=== PATIENT | female | born 1940 | race Caucasian/White ===

== ENCOUNTER 2016-11-10 17:54 | Emergency (ER) | payer MEDICARE, OTHER ==
--- NOTE | 2016-11-10 19:11 | ER Document Report ---
ED Fall - General Chief Complaint: Fall Injury Stated Complaint: FALL/HEAD INJURY Information source: Patient, Relative, Emergency Med Personnel Notes: Patient supposedly had a witnessed fall at [facility] prior to arrival without loss of consciousness. Patient has had no vomiting, fevers, nausea, weakness or numbness. Patient's tetanus is up-to-date according to the family members in the room. Family states that the patient should not be walking unassisted. TRAVEL OUTSIDE OF THE [place] IN LAST 30 DAYS: No - HPI Occurred: Just prior to arrival Where: Senior Living Context: Lost balance Associated symptoms: None Location of injury/pain: Other - See above Quality of pain: Achy Severity: Mild Pain Level: 1 Prehospital interventions: C-collar. No: Backboard - Related data Allergies/Adverse Reactions: No Known Allergies Allergy (Verified 08/22/16 22:27) Past Medical History - Social History Smoking Status: Unknown if Ever Smoked Cigarette use (# per day): No Chew tobacco use (# tins/day): No Smoking Education Provided: No Frequency of alcohol use: None Drug Abuse: None Family History: None - Past Medical History Cardiac Medical History: Reports: Hx Congestive Heart Failure, Hx Hypertension Denies: Hx Coronary Artery Disease, Hx Heart Attack Pulmonary Medical History: Denies: Hx Asthma, Hx Bronchitis, Hx COPD, Hx Pneumonia Neurological Medical History: Reports: Hx Cerebrovascular Accident. Denies: Hx Seizures Endocrine Medical History: Reports: Hx Diabetes Mellitus Type 2 Musculoskeltal Medical History: Reports Hx Arthritis - Shoulder Psychiatric Medical History: Reports: Hx Dementia Past Surgical History: Reports: Hx Hysterectomy. Denies: Hx Pacemaker - Immunizations Hx Diphtheria, Pertussis, Tetanus Vaccination: Yes Review of Systems - Review of Systems Constitutional: denies: Fever EENT: denies: Eye discharge, Nose discharge Cardiovascular: denies: Chest pain, Palpitations, Heart racing Respiratory: denies: Cough Gastrointestinal: denies: Vomiting Genitourinary: denies: Dysuria Musculoskeletal: denies: Leg swelling Skin: Other - no hives. denies: Rash Neurological/Psychological: Other - no slurred speech -: Yes All other systems reviewed and negative Physical Exam - Vital signs Notes: Reviewed vital signs and nursing note as charted by RN. CONSTITUTIONAL: Alert and disoriented at baseline according to the family but responds appropriately to questions. Well-appearing; well-nourished HEAD: Normocephalic; 2 large hematomas to the left side of the head with dried blood. EYES: PERRL; full extraocular range of motion. ENT: Normal nose; no rhinorrhea; moist mucous membranes; pharynx without lesions noted NECK: Supple without meningismus; non-tender; no step-offs; cervical collar in place. CARD: Regular rate and rhythm; no murmurs, no clicks, no rubs, no gallops; symmetric distal pulses RESP: Normal chest excursion without splinting or tachypnea; breath sounds clear and equal bilaterally; no wheezes, no rhonchi, no rales ABD/GI: Normal bowel sounds; non-distended; soft, non-tender, no palpable organomegaly or masses BACK: The back appears normal and is non-tender to palpation EXT: Patient appears to have normal range of motion of all the joints. There was a concern about left knee pain but I am able to fully flex and extend the knee without difficulty. The leg is not shortened. Neurovascularly intact distally. SKIN: Normal color for age and race; warm; dry; good turgor; capillary refill < 2 seconds; no acute lesions noted NEURO: CN II through XII are intact. 5 out of 5 bilateral upper lower externally strength. PSYCH: The patient's mood and manner are appropriate. Grooming and personal hygiene are appropriate. Course - Re-evaluation Re-evalutation: 11/10/16 19:11 Given the history and physical examination in this elderly female, I will obtain a CT scan of the head, cervical spine, and x-ray of the chest and pelvis. We'll reassess the patient. 11/10/16 20:56 CT scan of the head and neck as recorded. X-rays as recorded. No acute fractures. After cleaning the wound the patient does have a small laceration to the lateral aspect of the head. We will place nba to close this laceration. 11/10/16 21:37 Laceration has been repaired. Patient still has no focal neurological deficits. Patient will be discharged back to the facility with strict return precautions that I've explained to the family. Procedures - Laceration/Wound Repair Left Head Wound length (cm): 2 Wound's Depth, Shape: Superficial Anesthetic type: 2% Lidocaine Volume Anesthetic (mLs): 5 Wound explored: Clean Irrigated w/ Saline (mLs): 200 Wound Repaired With: Freeman Number of Sutures: 4 Post-procedure wound care: Sterile dressing applied Post-procedure NV exam normal: Yes Complications: No Discharge - Discharge Clinical Impression: Accidental fall Qualifiers: Encounter type: initial encounter Qualified Code(s): W19.XXXA - Unspecified fall, initial encounter Laceration of head Qualifiers: Encounter type: initial encounter Location of open wound of head: scalp Foreign body presence: without foreign body Qualified Code(s): S01.01XA - Laceration without foreign body of scalp, initial encounter Contusion, hip Qualifiers: Encounter type: initial encounter Laterality: left Qualified Code(s): S70.02XA - Contusion of left hip, initial encounter Condition: Good Disposition: HOME-ASSISTED LIVING Additional Instructions: Please apply bacitracin to the wound twice daily. Return in around 10 days for staple removals. Please come back immediately with any swelling, redness, or discharge from the wound, any fevers, any change in mental status, any vomiting , or any other acute problems.
[2016-11-10] MEDS ORDERED: LIDOCAINE 2%/EPINEPHRINE INJ 20 ML VIAL INJ ONE (20:58)
[2016-11-10] MEDS ORDERED: BACITRACIN ZINC OINTMENT 15 GM TP ONE (21:43)
[2016-11-10] MEDS ORDERED: BACITRACIN ZINC OINTMENT 15 GM ONE (22:26)
[2016-11-10 23:31] VITALS: BP 100/68
== END 2016-11-10 22:25 | disposition home health service (06) ==
LOC: ER 17:54
PROC: 0HQ0XZZ Repair Scalp Skin, External Approach (ICD-10-PCS; principal; 2016-11-10)
DX: S01.01XA Laceration without foreign body of scalp, initial encounter (principal); S70.02XA Contusion of left hip, initial encounter; W19.XXXA Unspecified fall, initial encounter; Y92.129 Unspecified place in nursing home as the place of occurrence of the external cause; I10 Essential (primary) hypertension; E11.9 Type 2 diabetes mellitus without complications; R41.0 Disorientation, unspecified; Z86.73 Personal history of transient ischemic attack (TIA), and cerebral infarction without residual deficits
CPT/HCPCS: 99285; 71020; 72170; 70450; 72125; 12002; J3490

== ENCOUNTER 2016-11-11 07:29 | Emergency (ER) | payer MEDICARE, OTHER ==
[2016-11-11] MEDS ORDERED: LIDOCAINE 5% (700 MG) TRANSDERMAL ADH..PATCH TP ONE (07:44)
[2016-11-11] MEDS ORDERED: TRAMADOL HCL 50 MG TABLET PO ONE (07:46)
--- NOTE | 2016-11-11 08:09 | ER Document Report ---
ED General - General Chief Complaint: Suture Recheck Stated Complaint: FALL;BODY PAIN TRAVEL OUTSIDE OF THE [place] IN LAST 30 DAYS: No - HPI Patient complains to provider of: body pain evaluation of wound Notes: Patient coming in for evaluation of head wound and also pain control. Patient' s coming in from local longterm. According to EMS therefore the area was at the patient was in diffuse pain and was not controlled with her medications also there is bleeding at previously stapled head wound. Patient has a history of dementia and therefore history of present illness difficult. Upon my evaluation patient complains of lower back pain. Otherwise patient has no other complaints is resting comfortably. - Related Data Allergies/Adverse Reactions: No Known Allergies Allergy (Verified 08/22/16 22:27) Past Medical History - Social History Smoking Status: Unknown if Ever Smoked Family History: None - Past Medical History Cardiac Medical History: Reports: Hx Congestive Heart Failure, Hx Hypertension Denies: Hx Coronary Artery Disease, Hx Heart Attack Pulmonary Medical History: Denies: Hx Asthma, Hx Bronchitis, Hx COPD, Hx Pneumonia Neurological Medical History: Reports: Hx Cerebrovascular Accident. Denies: Hx Seizures Endocrine Medical History: Reports: Hx Diabetes Mellitus Type 2 Musculoskeltal Medical History: Reports Hx Arthritis - Shoulder Psychiatric Medical History: Reports: Hx Dementia Past Surgical History: Reports: Hx Hysterectomy. Denies: Hx Pacemaker - Immunizations Hx Diphtheria, Pertussis, Tetanus Vaccination: Yes Review of Systems - Review of Systems -: Yes ROS unobtainable due to patient's medical condition - History of dementia Physical Exam - Vital signs Vitals: Temp Pulse Resp BP Pulse Ox 98.4 F 105 H 18 142/72 H 98 11/11/16 07:36 11/11/16 07:36 11/11/16 07:36 11/11/16 07:36 11/11/16 07:36 Interpretation: Normal - General General appearance: Appears well, Alert - HEENT Head: Normocephalic. No: Atraumatic - Patient does have a contusion of the left frontal region with various stages of healing. Patient does have a suture site on the left occipital parietal region with signs of previous bleeding no active bleeding at this time. Eyes: Normal Pupils: PERRL - Respiratory Respiratory status: No respiratory distress Chest status: Nontender Breath sounds: Normal Chest palpation: Normal - Cardiovascular Rhythm: Regular Heart sounds: Normal auscultation Murmur: No - Abdominal Inspection: Normal Distension: No distension Bowel sounds: Normal Tenderness: Nontender Organomegaly: No organomegaly - Back Back: Normal, Nontender - Extremities General upper extremity: Normal inspection, Nontender, Normal color, Other - No tenderness to palpation General lower extremity: Normal inspection, Nontender, Normal color, Other - No tenderness to palpation - Neurological Neuro grossly intact: Yes Sensory: Normal - Psychological Associated symptoms: Confused - Dementia - Skin Skin Temperature: Warm Skin Moisture: Dry Skin Color: Normal Course - Re-evaluation Re-evalutation: 11/11/16 14:18 Review the patient's longterm notes show that she received Ultram at midnight no Ultram this morning patient is prescribed Ultram every 6 hours. I gave the patient of this for Ultram did place a Lidoderm patch on the patient for pain control. Suture site does have some signs of bleeding no active bleeding this time recommended pressure the site bleeds again after cleaning. - Vital Signs Vital signs: Temp Pulse Resp BP Pulse Ox 98.6 F 102 H 16 127/55 H 94 11/11/16 08:30 11/11/16 08:30 11/11/16 08:30 11/11/16 08:30 11/11/16 08:30 Discharge - Discharge Clinical Impression: Accidental fall Qualifiers: Encounter type: subsequent encounter Qualified Code(s): W19.XXXD - Unspecified fall, subsequent encounter Laceration of head Qualifiers: Encounter type: subsequent encounter Location of open wound of head: scalp Foreign body presence: without foreign body Qualified Code(s): S01.01XD - Laceration without foreign body of scalp, subsequent encounter Condition: Fair Disposition: OTHER Additional Instructions: Patient was reexamined today. Also reviewed patient's radiographs from visit day prior. Patient is resting currently. Examination reveals no new bony point tenderness. No need for repeat radiographs at this time that the patient had a full set done day prior. Please continue to give patient pain medication as scheduled. For any bleeding at the wound site please apply direct pressure for 30 minutes. Please discussed the patient's pain regimen with her attending physician at the longterm. Referrals: PHONG NAYAK MD [Primary Care Provider] - Follow up as needed
[2016-11-11 08:31] VITALS: BP 127/55
== END 2016-11-11 08:38 | disposition other institution (70) ==
LOC: ER 07:29
DX: S01.01XD Laceration without foreign body of scalp, subsequent encounter (principal); W19.XXXD Unspecified fall, subsequent encounter; E11.9 Type 2 diabetes mellitus without complications; I50.9 Heart failure, unspecified; I11.0 Hypertensive heart disease with heart failure; Z90.710 Acquired absence of both cervix and uterus
CPT/HCPCS: 99283; A9270

== ENCOUNTER 2016-11-15 15:40 | Inpatient (IN) | payer MEDICARE, OTHER ==
[2016-11-15] MEDS ORDERED: NORMAL SALINE 500 ML IV PRN (16:43)
--- NOTE | 2016-11-15 16:47 | ER Document Report ---
ED General - General Chief Complaint: Altered Mental Status Stated Complaint: BLOOD SUGAR CONCERNS Time seen by provider: 16:45 Mode of Arrival: Medic Information source: Relative Notes: This is a 76-year-old female with a history of dementia, diabetes, hypertension , acute renal failure, CVA. The patient is brought to the emergency room today because of an altered mental status and elevated blood sugar. The patient was recently evaluated in the ER on November 10 after a witnessed fall at [facility]. At that time, the patient had head CT, cervical spine CT, chest x-ray, pelvis x-ray. CT showed no acute fracture in the pelvis x-ray showed old left pubic rami fracture. The patient had a head laceration that was repaired and she was sent back to [facility]. She will return to the emergency room on November 11 because of increased pain and bleeding from the suture site. At the time of that evaluation, there was no active bleeding. The patient had already been on Ultram but admits to morning dose. She was cleared and sent back to [facility]. TRAVEL OUTSIDE OF THE [place] IN LAST 30 DAYS: No - HPI Onset: Just prior to arrival Onset/Duration: Gradual Quality of pain: Dull Severity: Moderate Pain Level: 4 Associated symptoms: denies: Chills, Fever Exacerbated by: Movement Relieved by: Other Similar symptoms previously: Yes Recently seen / treated by doctor: Yes - Related Data Allergies/Adverse Reactions: No Known Allergies Allergy (Verified 11/15/16 16:04) Past Medical History - General Information source: Relative, Transfer Record - Social History Smoking Status: Unknown if Ever Smoked Cigarette use (# per day): No Chew tobacco use (# tins/day): No Smoking Education Provided: No Frequency of alcohol use: None Drug Abuse: None Lives with: Long Term Family History: None Patient has suicidal ideation: No Patient has homicidal ideation: No - Past Medical History Cardiac Medical History: Reports: Hx Congestive Heart Failure, Hx Hypertension Denies: Hx Coronary Artery Disease, Hx Heart Attack Pulmonary Medical History: Denies: Hx Asthma, Hx Bronchitis, Hx COPD, Hx Pneumonia Neurological Medical History: Reports: Hx Cerebrovascular Accident. 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 Denies : Hx Pacemaker - Immunizations Hx Diphtheria, Pertussis, Tetanus Vaccination: Yes Review of Systems - Review of Systems Constitutional: denies: Chills, Fever EENT: See HPI Cardiovascular: No symptoms reported Respiratory: No symptoms reported Gastrointestinal: No symptoms reported Genitourinary: No symptoms reported Female Genitourinary: No symptoms reported Musculoskeletal: No symptoms reported Skin: See HPI Hematologic/Lymphatic: No symptoms reported Neurological/Psychological: See HPI, Confusion, Dementia Physical Exam - Vital signs Vitals: Resp Pulse Ox 24 H 95 11/15/16 15:53 11/15/16 15:53 Notes: Physical exam: GENERAL: 76-year-old female, confused, lethargic. Patient is more confused than her baseline dementia as per family. HEAD: The patient has a left temporal hematoma which has no pulsatile component. There is no overlying warmth or evidence of infection. EYES: Pupils equal round and reactive to light, extraocular movements intact, sclera anicteric, conjunctiva are normal. ENT: Dry mucous membranes. The patient does appear dehydrated. NECK: Normal range of motion, supple LUNGS: Breath sounds clear to auscultation bilaterally and equal. No wheezes rales or rhonchi. HEART: Regular rate and rhythm without murmurs, rubs or gallops. ABDOMEN: Soft, normoactive bowel sounds. No tenderness to palpation. No guarding, no rebound. No masses appreciated. Back: The patient does have a 7 x 6 cm hematoma over the left iliac wing just to the left of midline in the low back. There is no erythema or evidence of infection. There is surrounding ecchymoses. The patient does have some superficial sacral breakdown. Rectal: Brown stool, sent for study. Rectal temperature 97.4. EXTREMITIES: Normal range of motion, no pitting or edema. No clubbing or cyanosis. NEUROLOGICAL: Patient does have dementia. She does have left upper extremity contracture which is baseline. PSYCH: Confused SKIN: Extensive bruising to the left side of the face, hematomas to the left temporal region and left back as noted above. Course - Re-evaluation Re-evalutation: 11/15/16 18:36 Patient was clinically dry and given IV normal saline 500 mL bolus. She was given IV insulin for hyperglycemia. Labs reveal acute renal failure, marked hypernatremia. Head CT shows no delayed bleed. CT of the abdomen and pelvis reveals a nondisplaced left acetabular fracture which is most likely nonsurgical. I discussed case with Dr. Cantor for admission to the medicine service for marked hyponatremia, acute renal failure, hyperglycemia hyperosmolar syndrome and encephalopathy. I notified Dr. Hand regarding the acetabular finding and he will see the patient in consult. - Vital Signs Vital signs: Temp Pulse Resp BP Pulse Ox 97.4 F 99 19 104/61 95 11/15/16 16:37 11/15/16 15:58 11/15/16 17:48 11/15/16 17:48 11/15/16 17:48 - Laboratory Result Diagrams: 11/15/16 16:10 11/15/16 16:10 Laboratory results interpreted by me: 11/15/16 11/15/16 16:10 16:10 Hgb 11.6 L RDW 14.5 H Seg Neutrophils % 82.6 H Lymphocytes % 10.0 L Sodium 165.5 H Chloride 128 H BUN 80 H Creatinine 2.09 H Est GFR ( Amer) 28 L Est GFR (Non-Af Amer) 23 L Glucose 581 H* AST 13 L Alkaline Phosphatase 193 H - Diagnostic Test Radiology reviewed: Image reviewed, Reports reviewed - Head CT shows no acute bleed. Pelvis CT shows acetabular nondisplaced fracture. - EKG Interpretation by Me Rate: Tachycardia - EKG shows sinus tachycardia with a ventricular rate of 100, nonspecific ST changes. Critical Care Note - Critical Care Note Total time excluding time spent on procedures (mins): 90 Discharge - Discharge Clinical Impression: hyperglycemia hyperosmolar syndrome, hypernatremia, acute renal failure, left acetabular fracture, metabolic encephalopathy Condition: Serious Disposition: ADMITTED INPATIENT Admitting Provider: Hospitalist - Dr. Cantor Unit Admitted: [facility]
[2016-11-15 17:11] LABS: ABSOLUTE EOSINOPHILS # (AUTO) 0.1 10^3/uL (0.0-0.6); ABSOLUTE LYMPHOCYTES (AUTO) 0.9 10^3/uL (0.5-4.7); ABSOLUTE MONOCYTES (AUTO) 0.5 10^3/uL (0.1-1.4); ABSOLUTE NEUT (AUTO) 7.2 10^3/uL (1.7-8.2); BASOPHILS % (AUTO) 0.4 % (0-2); EOSINOPHILS % (AUTO) 0.8 % (0-6); HEMATOCRIT 36.2 % (36.0-47.0); HEMOGLOBIN 11.6 g/dL (12.0-15.5); HGB HCT DIFFERENCE -1.4; MEAN CORPUSCULAR HEMOGLOBIN 30.2 pg (27.0-33.4); MEAN CORPUSCULAR HGB CONC 32.1 g/dL (32.0-36.0); MEAN CORPUSCULAR VOLUME 94 fl (80-97); MONOCYTES % (AUTO) 6.2 % (3-13); RED BLOOD COUNT 3.86 10^6/uL (3.72-5.28); RED CELL DISTRIBUTION WIDTH 14.5 % (11.5-14.0); SEGMENTED NEUTROPHILS % (AUTO) 82.6 % (42-78); WHITE BLOOD COUNT 8.7 10^3/uL (4.0-10.5)
[2016-11-15 17:16] LABS: ALANINE AMINOTRANSFERASE 30 U/L (9-52); ALBUMIN 3.6 g/dL (3.5-5.0); ALKALINE PHOSPHATASE 193 U/L (38-126); ANION GAP 16 (5-19); ASPARTATE AMINO TRANSFERASE 13 U/L (14-36); BLOOD UREA NITROGEN 80 mg/dL (7-20); CALCIUM 9.8 mg/dL (8.4-10.2); CARBON DIOXIDE 22 mmol/L (22-30); CHLORIDE 128 mmol/L (98-107); CREATININE RESULT 2.09 mg/dL (0.52-1.25); POTASSIUM 4.6 mmol/L (3.6-5.0); SODIUM 165.5 mmol/L (137-145); TOTAL PROTEIN 6.5 g/dL (6.3-8.2)
[2016-11-15 17:26] LABS: GLUCOSE 581 mg/dL (75-110)
[2016-11-15] MEDS ORDERED: INSULIN REG, HUMAN 100 UNIT/ML 3 ML VIAL (PYX) IV ONE (18:10)
[2016-11-15] MEDS ORDERED: INSULIN REG, HUMAN 100 UNIT/ML 3 ML VIAL (PYX) ONE (18:20)
[2016-11-15] MEDS ORDERED: DEXTROSE 40% GEL 15 GM TUBE PO PRN ×2 (18:39)
[2016-11-15] MEDS ORDERED: GLUCAGON,HUMAN RECOMB 1 MG INJ IM PRN (18:39)
[2016-11-15] MEDS ORDERED: HYDROMORPHONE HCL INJ/PF 2 MG/ML AMPULE IV PRN (18:39)
[2016-11-15] MEDS ORDERED: DEXTROSE 50%-WATER 25 GM/50 ML DISP.SYRIN IV PRN ×2 (18:39)
[2016-11-15] MEDS ORDERED: HYDRALAZINE HCL INJ/PF 20 MG/1 ML SDV IV PRN (18:40)
[2016-11-15] MEDS ORDERED: ACETAMINOPHEN 650 MG SUPP.RECT PR PRN (18:42)
[2016-11-15] MEDS ORDERED: ONDANSETRON HCL INJ/PF 4 MG/2 ML SDV IV PRN (18:42)
[2016-11-15] MEDS ORDERED: ACETAMINOPHEN 325 MG TABLET PO PRN (18:42)
[2016-11-15] MEDS ORDERED: 1/2 NORMAL SALINE 1,000 ML IV PRN (18:42)
[2016-11-15] MEDS ORDERED: CYANOCOBALAMIN (VITAMIN B-12) INJ 1000 MCG/1 ML VIAL IM ONE (18:55)
--- NOTE | 2016-11-15 19:01 | PDOC H&P ---
History of Present Illness Admission Date/PCP: KATE Vargas Patient complains of: Altered mental status History of Present Illness: DELROY BORJAS is a 76 year old female with past medical history of dementia, diabetes, hypertension, ambulatory dysfunction with frequent falls presents to the emergency department with altered mental status. Patient apparently sustained a fall on 11/10/2016 with a scalp laceration for which she presented to the emergency department. Laceration was sutured with [address] at that time was negative. Family reports the patient has had decreased appetite and worsening mental status since then. 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 Psychiatric Medical History: Reports: Dementia Hematology: Denies: Anemia Past Surgical History Past Surgical History: Reports: Hysterectomy, Orthopedic Surgery Denies: Pacemaker Social History Lives with: [facility] Smoking Status: Unknown if Ever Smoked Frequency of Alcohol Use: None Hx Recreational Drug Use: No Hx Prescription Drug Abuse: No Family History Family History: None Parental Family History Reviewed: Yes Children Family History Reviewed: Yes Sibling(s) Family History Reviewed.: Yes Medication/Allergy Allergies/Adverse Reactions: No Known Allergies Allergy (Verified 11/15/16 16:04) Review of Systems ROS unobtainable: Due to mental status Physical Exam Vital Signs: Temp Pulse Resp BP Pulse Ox 97.4 F 99 21 H 118/65 96 11/15/16 16:37 11/15/16 15:58 11/15/16 18:01 11/15/16 18:01 11/15/16 18:01 Intake & Output 11/14/16 11/15/16 11/16/16 06:59 06:59 06:59 Weight 45.359 kg PHYSICAL EXAM: GENERAL: Appears well, no acute distress HEENT: Normocephalic, no scleral icterus, conjunctiva clear, EOEM intact, PERRLA , dry mucous membranes NECK: trachea midline, no thyromegally RESPIRATORY: Clear to auscultation, no wheezes/rhonchi CARDIAC: Regular rate and rhythm, no murmur/amanda/rub ABDOMEN: Soft, no distension, no tenderness, no guarding, normal bowel sounds, negative Kruse sign RECTAL: deferred : deferred EXTREMITIES: No edema, cyanosis, clubbing MUSCULOSKELETAL: Pain with range of motion left lower extremity VASCULAR: normal peripheral pulses NEUROLOGIC: Alert, disoriented, cranial nerves grossly intact, 5/5 strength in all extremities, tactile sensation intact in all extremities SKIN: No rash, no wounds, no worrisome skin lesions. Decrease in turgor PSYCHIATRIC: Unable to assess secondary to encephalopathic state Results Laboratory Results: 11/15/16 16:10 11/15/16 16:10 11/15/16 11/15/16 11/15/16 16:10 16:10 16:35 WBC 8.7 RBC 3.86 Hgb 11.6 L Hct 36.2 MCV 94 MCH 30.2 MCHC 32.1 RDW 14.5 H Plt Count 259 Seg Neutrophils % 82.6 H Lymphocytes % 10.0 L Monocytes % 6.2 Eosinophils % 0.8 Basophils % 0.4 Absolute Neutrophils 7.2 Absolute Lymphocytes 0.9 Absolute Monocytes 0.5 Absolute Eosinophils 0.1 Absolute Basophils 0.0 Sodium 165.5 H Potassium 4.6 Chloride 128 H Carbon Dioxide 22 Anion Gap 16 BUN 80 H Creatinine 2.09 H Est GFR ( Amer) 28 L Est GFR (Non-Af Amer) 23 L Glucose 581 H* Calcium 9.8 Total Bilirubin 1.0 AST 13 L ALT 30 Alkaline Phosphatase 193 H Total Protein 6.5 Albumin 3.6 Stool Occult Blood NEGATIVE Impressions: Head CT 11/15/16 16:40 IMPRESSION: NO ACUTE INTRACRANIAL PROCESS. NO SIGNIFICANT CHANGE FROM PRIOR STUDY. Abdomen/Pelvis CT 11/15/16 16:43 IMPRESSION: NO ACUTE FINDINGS WITHIN THE ABDOMEN OR PELVIS. ACUTE FRACTURE INVOLVING THE POSTERIOR ASPECT OF THE LEFT ACETABULUM IN A PATIENT WHO IS STATUS POST HIP ARTHROPLASTY. ADDITIONAL HEALING FRACTURES NOTED INVOLVING THE LEFT MARJAN SACRUM AND BILATERAL SUPERIOR INFERIOR PUBIC RAMI. Assessment & Plan - Diagnosis (1) Encephalopathy Is this a current diagnosis for this admission?: YesPlan: Likely multifactorial nature to include dementia, dehydration, hyperglycemia, hypernatremia, B-12 deficiency. Continue supportive care. Nothing by mouth status for now until mental status improves. IV fluids. (2) Left acetabular fracture Is this a current diagnosis for this admission?: YesPlan: Consult Dr. Hand of orthopedics for management. When necessary IV Dilaudid. Patient is nonambulatory at baseline according to family members. (3) Dehydration Is this a current diagnosis for this admission?: YesPlan: IV rehydration. (4) Acute kidney injury Is this a current diagnosis for this admission?: YesPlan: Secondary to dehydration. Administer IV fluids. Repeat labs in the morning. (5) Diabetes Is this a current diagnosis for this admission?: YesPlan: Sliding scale insulin. IV fluids. Verify outpatient medications and resume as soon as possible. (6) Dementia Qualifiers: Dementia type: vascular dementia Is this a current diagnosis for this admission?: YesPlan: Verify outpatient medications and resume as soon as possible. Patient resides at [facility] assisted living [facility] at baseline. (7) Depression Is this a current diagnosis for this admission?: YesPlan: Verify outpatient medications and resume as soon as possible. (8) Hypertension Is this a current diagnosis for this admission?: YesPlan: Verify outpatient medications and resume as soon as possible. When necessary IV hydralazine. (9) Laceration of head Qualifiers: Encounter type: subsequent encounter Location of open wound of head: scalp Foreign body presence: without foreign body Qualified Code(s): S01.01XD - Laceration without foreign body of scalp, subsequent encounter Is this a current diagnosis for this admission?: YesPlan: This was repaired on 11/10/2016 with 4 interrupted sutures. Patient will need suture removal on 11/20/2016. (10) Remote history of stroke Is this a current diagnosis for this admission?: YesPlan: Verify home medication and resume. Start aspirin 81 mg for now. (11) Vitamin B 12 deficiency Is this a current diagnosis for this admission?: YesPlan: Administer B-12 injection. Patient should be on monthly B-12 injections but will have to verify outpatient medications. - Time Time Spent: Greater than 70 Minutes - Inpatient Certification Based on my medical assessment, after consideration of the patient's comorbidities, presenting symptoms, or acuity I expect that the services needed warrant INPATIENT care.: Yes I certify that my determination is in accordance with my understanding of Medicare's requirements for reasonable and necessary INPATIENT services [42 CFR 412.3e].: Yes Medical Necessity: Need Close Monitoring Due to Risk of Patient Decompensation, Need For IV Fluids, Need For Continuous Telemetry Monitoring, Need for Neurological Checks, Need for Pain Control
[2016-11-15 19:10] LABS: APPEARANCE,URINE CLOUDY; BILIRUBIN,URINE NEGATIVE (NEGATIVE); GLUCOSE, URINE >=500 mg/dL (NEGATIVE); KETONES,URINE NEGATIVE (NEGATIVE); LEUKOCYTE ESTERASE,URINE LARGE (NEGATIVE); NITRITE,URINE NEGATIVE (NEGATIVE); PROTEIN,URINE 100 mg/dL (NEGATIVE); URINE SPECIFIC GRAVITY 1.023; UROBILINOGEN,URINE NEGATIVE mg/dL (<2.0)
--- NOTE | 2016-11-15 19:33 | EKG REPORT ---
SEVERITY:- ABNORMAL ECG - SINUS TACHYCARDIA REPOL ABNRM SUGGESTS ISCHEMIA, ANT-LAT LEADS : Confirmed by: Bisi Sargent 15-Nov-2016 19:32:24
[2016-11-15] MEDS: 1/2 NORMAL SALINE 1,000 ML IV PRN (20:03)
[2016-11-16] MEDS ORDERED: CYANOCOBALAMIN (VITAMIN B-12) INJ 1000 MCG/1 ML VIAL ONE (01:20)
[2016-11-16] MEDS: 1/2 NORMAL SALINE 1,000 ML IV PRN ×3 (01:22→18:26)
[2016-11-16] MEDS: HEPARIN SOD (PORCINE) 5,000 UNIT/ML 1 ML SYRINGE SUBCUT SCH ×4 (02:26→21:32)
[2016-11-16 04:48] LABS: ABSOLUTE EOSINOPHILS # (AUTO) 0.1 10^3/uL (0.0-0.6); ABSOLUTE LYMPHOCYTES (AUTO) 1.2 10^3/uL (0.5-4.7); ABSOLUTE MONOCYTES (AUTO) 0.5 10^3/uL (0.1-1.4); ABSOLUTE NEUT (AUTO) 5.9 10^3/uL (1.7-8.2); BASOPHILS % (AUTO) 0.3 % (0-2); EOSINOPHILS % (AUTO) 0.9 % (0-6); HEMATOCRIT 30.9 % (36.0-47.0); HEMOGLOBIN 10.1 g/dL (12.0-15.5); HGB HCT DIFFERENCE -0.6; LYMPHOCYTES % (AUTO) 15.5 % (13-45); MEAN CORPUSCULAR HEMOGLOBIN 30.5 pg (27.0-33.4); MEAN CORPUSCULAR HGB CONC 32.6 g/dL (32.0-36.0); MEAN CORPUSCULAR VOLUME 94 fl (80-97); MONOCYTES % (AUTO) 6.7 % (3-13); RED CELL DISTRIBUTION WIDTH 14.4 % (11.5-14.0); SEGMENTED NEUTROPHILS % (AUTO) 76.6 % (42-78); WHITE BLOOD COUNT 7.7 10^3/uL (4.0-10.5)
[2016-11-16 05:10] LABS: ANION GAP 14 (5-19); BLOOD UREA NITROGEN 75 mg/dL (7-20); CALCIUM 8.7 mg/dL (8.4-10.2); CARBON DIOXIDE 19 mmol/L (22-30); CHLORIDE 132 mmol/L (98-107); CREATININE RESULT 1.55 mg/dL (0.52-1.25); GLUCOSE 351 mg/dL (75-110); MAGNESIUM 2.5 mg/dL (1.6-2.3); POTASSIUM 4.2 mmol/L (3.6-5.0)
[2016-11-16] MEDS: INSULIN LISPRO 100 UNIT/ML 3 ML VIAL SUBCUT PRN ×2 (05:51→18:23)
[2016-11-16] MEDS: SERTRALINE HCL 50 MG TABLET PO SCH (10:52)
[2016-11-16] MEDS: ASPIRIN 81 MG TABLET, ENT COATED PO SCH (10:52)
[2016-11-16] MEDS: MEMANTINE HCL 10 MG TABLET PO SCH ×2 (10:52→18:23)
--- NOTE | 2016-11-16 11:47 | PDOC CONSULTATION ---
Consultation Consult Date: 11/16/16 Attending physician:: LOLA TRAORE MD Consult reason:: Left acetabular fracture History of Present Illness Admission Date/PCP: 11/15/16 18:42 Patient complains of: Left hip pain History of Present Illness: DELROY BORJAS is a 76 year old female with past medical history of dementia, diabetes, hypertension, ambulatory dysfunction with frequent falls presents to the emergency department with altered mental status. Patient apparently sustained a fall on 11/10/2016 with a scalp laceration for which she presented to the emergency department. Laceration was sutured with [address] at that time was negative. Family reports the patient has had decreased appetite and worsening mental status since then. History given by family. Patient complaining of left hip pain after fall out of bed. States the pain is in the posterior aspect of her hip. She is less than 3 months out from having a left hemiarthroplasty done for femoral neck fracture down in [place]. Family states she is a limited ambulator and has fallen 3 times a last several months from her bed. 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 Psychiatric Medical History: Reports: Dementia Hematology: Denies: Anemia Past Surgical History Past Surgical History: Reports: Hysterectomy, Orthopedic Surgery Denies: Pacemaker Social History Lives with: Long Term Smoking Status: Unknown if Ever Smoked Frequency of Alcohol Use: None Hx Recreational Drug Use: No Hx Prescription Drug Abuse: No Family History Family History: None Parental Family History Reviewed: No Children Family History Reviewed: Yes Sibling(s) Family History Reviewed.: No Medication/Allergy Home Medications: Acetaminophen [Tylenol 325 mg Tablet] 650 mg PO Q6HP PRN 11/15/16 Amlodipine Besylate [Norvasc 10 mg Tablet] 10 mg PO DAILY 11/15/16 Aspirin [Aspirin EC] 81 mg PO DAILY 11/15/16 Bacitracin 1 applic TP BID 11/15/16 Celecoxib [Celebrex 200 mg Capsule] 200 mg PO Q12 11/15/16 Lisinopril [Prinivil 40 mg Tablet] 40 mg PO DAILY 11/15/16 Mag Hydrox/Al Hydrox/Simeth [Maalox Plus Susp 30 Udcup] 30 ml PO Q6HP PRN Memantine HCl [Namenda 10 mg Tablet] 10 mg PO BID 11/15/16 Metformin HCl [Glucophage] 500 mg PO BID 11/15/16 Mirtazapine 7.5 mg PO QHS 11/15/16 Polyethylene Glycol 3350 [Miralax Powder 17 gm/Packet] 1 packet PO DAILY Potassium Chloride 20 meq PO DAILY 11/15/16 Promethazine HCl [Phenergan 25 mg Tablet] 12.5 mg PO Q6HP PRN 11/15/16 Sennosides/Docusate Sodium [Senna-S Tablet] 1 tab PO BID 11/15/16 Sertraline HCl [Zoloft] 100 mg PO DAILY 11/15/16 Tramadol HCl [Ultram 50 mg Tablet] 50 mg PO Q6HP PRN 11/15/16 Allergies/Adverse Reactions: No Known Allergies Allergy (Verified 11/15/16 16:04) Review of Systems Constitutional: PRESENT: as per HPI Eyes: ABSENT: visual disturbances Ears: ABSENT: hearing changes Nose, Mouth, and Throat: ABSENT: mouth pain, sore throat Cardiovascular: ABSENT: chest pain, dyspnea on exertion, orthropnea, palpitations Respiratory: ABSENT: cough, dyspnea, hemoptysis Gastrointestinal: ABSENT: abdominal pain, bloating, nausea, vomiting Genitourinary: ABSENT: difficulty urinating, hematuria Musculoskeletal: PRESENT: as per HPI Integumentary: ABSENT: lesions, wounds Neurological: PRESENT: abnormal gait, confusion, frequent falls Psychiatric: ABSENT: hallucinations, suicidal ideation Hematologic/Lymphatic: ABSENT: easy bleeding, lymphadenopathy Allergic/Immunologic: ABSENT: seasonal rhinorrhea Physical Exam Vital Signs: Temp Pulse Resp BP Pulse Ox 36.6 C 93 16 109/66 99 11/16/16 07:32 11/16/16 07:32 11/16/16 07:32 11/16/16 07:32 11/16/16 07:32 Intake & Output 11/15/16 11/16/16 11/17/16 06:59 06:59 07:59 Intake Total 900 Output Total 100 Balance 800 Weight 43.8 kg General appearance: PRESENT: no acute distress, thin Head exam: PRESENT: atraumatic, normocephalic Eye exam: PRESENT: EOMI, periorbital swelling, PERRLA. ABSENT: nystagmus Ear exam: PRESENT: normal external ear exam. ABSENT: bleeding, drainage Mouth exam: PRESENT: neck supple Neck exam: ABSENT: tenderness, thyromegaly, tracheal deviation Respiratory exam: PRESENT: symmetrical, unlabored. ABSENT: accessory muscle use , chest wall tenderness, tachypnea Pulses: PRESENT: normal dorsalis pedis pul Vascular exam: PRESENT: normal capillary refill GI/Abdominal exam: PRESENT: soft. ABSENT: distended, guarding, organolmegaly, tenderness Musculoskeletal exam: PRESENT: tenderness - Over left groin and left posterior hip. No tenderness of the lateral aspect of the hip or thigh., other - Pain and groin and posterior hip with attempted range of motion of the left hip. Pain with internal/external rotation attempts too. Limb lengths are grossly equal.. ABSENT: deformity, dislocation Neurological exam: PRESENT: altered, reflexes normal Psychiatric exam: PRESENT: appropriate affect, normal mood, other - Patient with noncommunicative dementia therefore not oriented to person time or place. Skin exam: PRESENT: other - No skin abrasions or lacerations or lesions. Well- healed surgical scar left hip Results Laboratory Results: 11/16/16 03:57 11/16/16 03:57 11/16/16 11/16/16 03:57 03:57 WBC 7.7 RBC 3.30 L Hgb 10.1 L Hct 30.9 L MCV 94 MCH 30.5 MCHC 32.6 RDW 14.4 H Plt Count 187 Seg Neutrophils % 76.6 Lymphocytes % 15.5 Monocytes % 6.7 Eosinophils % 0.9 Basophils % 0.3 Absolute Neutrophils 5.9 Absolute Lymphocytes 1.2 Absolute Monocytes 0.5 Absolute Eosinophils 0.1 Absolute Basophils 0.0 Sodium 165.0 H Potassium 4.2 Chloride 132 H Carbon Dioxide 19 L Anion Gap 14 BUN 75 H Creatinine 1.55 H Est GFR ( Amer) 39 L Est GFR (Non-Af Amer) 33 L Glucose 351 H Calcium 8.7 Magnesium 2.5 H Impressions: Head CT 11/15/16 16:40 IMPRESSION: NO ACUTE INTRACRANIAL PROCESS. NO SIGNIFICANT CHANGE FROM PRIOR STUDY. Abdomen/Pelvis CT 11/15/16 16:43 IMPRESSION: NO ACUTE FINDINGS WITHIN THE ABDOMEN OR PELVIS. ACUTE FRACTURE INVOLVING THE POSTERIOR ASPECT OF THE LEFT ACETABULUM IN A PATIENT WHO IS STATUS POST HIP ARTHROPLASTY. ADDITIONAL HEALING FRACTURES NOTED INVOLVING THE LEFT MARJAN SACRUM AND BILATERAL SUPERIOR INFERIOR PUBIC RAMI. Status: Image reviewed by me Assessment & Plan - Diagnosis (1) Left acetabular fracture Qualifiers: Encounter type: initial encounter Sublocation of acetabulum: posterior wall Fracture type: closed Fracture alignment: nondisplaced Qualified Code(s): S32.425A - Nondisplaced fracture of posterior wall of left acetabulum, initial encounter for closed fracture Is this a current diagnosis for this admission?: YesPlan: Patient is a 76-year-old noncommunicative dementia patient who is a limited ambulator who was brought for altered mental status and complaints of left hip pain. Patient being treated for her hyperglycemia and mental status changes by hospitalist. Pertaining to her left hip patient has a nondisplaced posterior wall/posterior column acetabular fracture. This isn't site of a left hemiarthroplasty done less than 3 months ago in [place]. Hip is stable. Fracture is a stable fracture as long as she is nonweightbearing from 8-12 weeks. Will not require surgical intervention. Pain control as needed. Patient to follow-up in 6-8 weeks for repeat x-rays. Discussed the high risks of her falling in the future especially when she is fell 3 times the last several months. They're aware of her being high risk fall patient. The taking appropriate measures.
[2016-11-16] MEDS: INSULIN GLARGINE,HUM.REC.ANLOG 300 UNIT/3 ML INSULN.PEN SUBCUT SCH (14:27)
[2016-11-16] MEDS: CEFEPIME 1 GM/D5W RTU 1 GM/50 ML RTUPB IV SCH (14:27)
--- NOTE | 2016-11-16 17:28 | PDOC PROGRESS REPORT ---
Subjective Progress Note for:: 11/16/16 Subjective:: Patient is much more alert and responsive today. She has no complaints of pain. Patient denies fever, chills, headache, new focal weakness, chest pain, shortness of breath, abdominal pain, nausea, vomiting, diarrhea, constipation. Physical Exam Vital Signs: Temp Pulse Resp BP Pulse Ox 97.6 F 93 16 133/67 H 98 11/16/16 16:01 11/16/16 16:01 11/16/16 16:01 11/16/16 16:01 11/16/16 16:01 Intake & Output 11/15/16 11/16/16 11/17/16 06:59 06:59 07:59 Intake Total 900 0 Output Total 100 300 Balance 800 -300 Weight 43.8 kg GENERAL: No acute distress HEENT: Conjunctiva clear, nonicteric, moist mucous membranes, no JVD, midline trachea RESPIRATORY: Clear to auscultation bilaterally, no wheezes, no rhonchi CARDIAC: Regular rate and rhythm, no murmurs/gallops/rubs ABDOMEN: Soft, nondistended, nontender, positive bowel sounds, no rebound, no guarding EXTREMETIES: No edema, cyanosis, clubbing NEUROLOGIC: Alert, oriented to person only, CN's grossly intact, no focal deficits SKIN: No rash, wounds. Multiple areas of ecchymosis, sutured skin laceration on scalp PSYCH: Normal mood, normal affect Results Laboratory Results: 11/16/16 03:57 11/16/16 03:57 11/16/16 11/16/16 03:57 03:57 WBC 7.7 RBC 3.30 L Hgb 10.1 L Hct 30.9 L MCV 94 MCH 30.5 MCHC 32.6 RDW 14.4 H Plt Count 187 Seg Neutrophils % 76.6 Lymphocytes % 15.5 Monocytes % 6.7 Eosinophils % 0.9 Basophils % 0.3 Absolute Neutrophils 5.9 Absolute Lymphocytes 1.2 Absolute Monocytes 0.5 Absolute Eosinophils 0.1 Absolute Basophils 0.0 Sodium 165.0 H Potassium 4.2 Chloride 132 H Carbon Dioxide 19 L Anion Gap 14 BUN 75 H Creatinine 1.55 H Est GFR ( Amer) 39 L Est GFR (Non-Af Amer) 33 L Glucose 351 H Calcium 8.7 Magnesium 2.5 H Impressions: Head CT 11/15/16 16:40 IMPRESSION: NO ACUTE INTRACRANIAL PROCESS. NO SIGNIFICANT CHANGE FROM PRIOR STUDY. Abdomen/Pelvis CT 11/15/16 16:43 IMPRESSION: NO ACUTE FINDINGS WITHIN THE ABDOMEN OR PELVIS. ACUTE FRACTURE INVOLVING THE POSTERIOR ASPECT OF THE LEFT ACETABULUM IN A PATIENT WHO IS STATUS POST HIP ARTHROPLASTY. ADDITIONAL HEALING FRACTURES NOTED INVOLVING THE LEFT MARJAN SACRUM AND BILATERAL SUPERIOR INFERIOR PUBIC RAMI. Assessment & Plan - Diagnosis (1) Encephalopathy Is this a current diagnosis for this admission?: YesPlan: Much improved. Likely multifactorial nature to include dementia, dehydration, hyperglycemia, hypernatremia, B-12 deficiency. Continue supportive care. Start oral intake. (2) Left acetabular fracture Qualifiers: Encounter type: initial encounter Sublocation of acetabulum: posterior wall Fracture type: closed Fracture alignment: nondisplaced Qualified Code(s): S32.425A - Nondisplaced fracture of posterior wall of left acetabulum, initial encounter for closed fracture Is this a current diagnosis for this admission?: YesPlan: Patient seen by Dr. Hand in no surgery required. Nonweightbearing 6 weeks. Patient is nonambulatory at baseline. (3) Dehydration Is this a current diagnosis for this admission?: YesPlan: Continue IV rehydration. (4) Acute kidney injury Is this a current diagnosis for this admission?: YesPlan: Secondary to dehydration. Administer IV fluids. Repeat labs in the morning. (5) Diabetes Is this a current diagnosis for this admission?: YesPlan: Sliding scale insulin. IV fluids. Continue to hold metformin secondary to acute kidney injury. Start Lantus 15 units subcutaneous daily. (6) Dementia Qualifiers: Dementia type: vascular dementia Is this a current diagnosis for this admission?: YesPlan: Namenda. Patient resides at [facility] living [facility] at baseline. (7) Depression Is this a current diagnosis for this admission?: YesPlan: Continue Zoloft and Remeron. (8) Hypertension Is this a current diagnosis for this admission?: YesPlan: Hold lisinopril secondary to acute kidney injury. Hold Norvasc for now secondary to low blood pressures. When necessary IV hydralazine. (9) Laceration of head Qualifiers: Encounter type: subsequent encounter Location of open wound of head: scalp Foreign body presence: without foreign body Qualified Code(s): S01.01XD - Laceration without foreign body of scalp, subsequent encounter Is this a current diagnosis for this admission?: YesPlan: This was repaired on 11/10/2016 with 4 interrupted sutures. Patient will need suture removal on 11/20/2016. (10) Remote history of stroke Is this a current diagnosis for this admission?: YesPlan: Continue aspirin 81 mg for now. (11) Vitamin B 12 deficiency Is this a current diagnosis for this admission?: YesPlan: Administered B-12 injection on 11/15/2016. Patient should be on monthly B-12 injections but will have to verify outpatient medications. (12) UTI (urinary tract infection) Is this a current diagnosis for this admission?: YesPlan: IV cefepime pending further culture. Urine Culture growing gram-negative rods preliminarily. - Time Time Spent with patient: 35 or more minutes Anticipated discharge: Other - [facility] Within: within 48 hours
[2016-11-16] MEDS: OXYCODONE HCL IR 5 MG TABLET PO PRN (18:24)
[2016-11-16] MEDS: MIRTAZAPINE 15 MG TABLET PO SCH (21:31)
[2016-11-17] MEDS: INSULIN LISPRO 100 UNIT/ML 3 ML VIAL SUBCUT PRN (00:46)
[2016-11-17] MEDS: 1/2 NORMAL SALINE 1,000 ML IV PRN ×5 (03:05→22:23)
[2016-11-17 05:01] LABS: ABSOLUTE EOSINOPHILS # (AUTO) 0.4 10^3/uL (0.0-0.6); ABSOLUTE LYMPHOCYTES (AUTO) 1.3 10^3/uL (0.5-4.7); ABSOLUTE MONOCYTES (AUTO) 0.5 10^3/uL (0.1-1.4); BASOPHILS % (AUTO) 0.5 % (0-2); EOSINOPHILS % (AUTO) 3.9 % (0-6); HEMATOCRIT 32.6 % (36.0-47.0); HEMOGLOBIN 10.6 g/dL (12.0-15.5); HGB HCT DIFFERENCE -0.8; MEAN CORPUSCULAR HEMOGLOBIN 30.4 pg (27.0-33.4); MEAN CORPUSCULAR HGB CONC 32.6 g/dL (32.0-36.0); MEAN CORPUSCULAR VOLUME 93 fl (80-97); MONOCYTES % (AUTO) 5.9 % (3-13); RED CELL DISTRIBUTION WIDTH 13.8 % (11.5-14.0); SEGMENTED NEUTROPHILS % (AUTO) 75.7 % (42-78); WHITE BLOOD COUNT 9.2 10^3/uL (4.0-10.5)
[2016-11-17 05:11] LABS: ANION GAP 8 (5-19); BLOOD UREA NITROGEN 48 mg/dL (7-20); CALCIUM 8.9 mg/dL (8.4-10.2); CARBON DIOXIDE 24 mmol/L (22-30); CHLORIDE 124 mmol/L (98-107); CREATININE RESULT 0.95 mg/dL (0.52-1.25); GLUCOSE 112 mg/dL (75-110); POTASSIUM 3.9 mmol/L (3.6-5.0); SODIUM 155.7 mmol/L (137-145)
[2016-11-17] MEDS: HEPARIN SOD (PORCINE) 5,000 UNIT/ML 1 ML SYRINGE SUBCUT SCH ×3 (05:51→22:24)
[2016-11-17] MEDS: MEMANTINE HCL 10 MG TABLET PO SCH ×2 (09:19→17:47)
[2016-11-17] MEDS: ASPIRIN 81 MG TABLET, ENT COATED PO SCH (09:19)
[2016-11-17] MEDS: SERTRALINE HCL 50 MG TABLET PO SCH (09:19)
[2016-11-17] MEDS: OXYCODONE HCL IR 5 MG TABLET PO PRN ×2 (09:19→17:47)
[2016-11-17] MEDS: CEFEPIME 1 GM/D5W RTU 1 GM/50 ML RTUPB IV SCH (15:07)
[2016-11-17] MEDS: INSULIN GLARGINE,HUM.REC.ANLOG 300 UNIT/3 ML INSULN.PEN SUBCUT SCH (15:08)
--- NOTE | 2016-11-17 16:28 | PDOC PROGRESS REPORT ---
Subjective Progress Note for:: 11/17/16 Subjective:: Patient has no complaints of pain. She has been taking good oral intake. Patient denies fever, chills, headache, new focal weakness, chest pain, shortness of breath, abdominal pain, nausea, vomiting, diarrhea, constipation. Physical Exam Vital Signs: Temp Pulse Resp BP Pulse Ox 98.9 F 94 18 147/82 H 98 11/17/16 11:44 11/17/16 11:44 11/17/16 11:44 11/17/16 11:44 11/17/16 11:44 Intake & Output 11/16/16 11/17/16 11/18/16 05:59 06:59 06:59 Intake Total 120 Output Total 300 Balance -180 Weight GENERAL: No acute distress HEENT: Conjunctiva clear, nonicteric, moist mucous membranes, no JVD, midline trachea RESPIRATORY: Clear to auscultation bilaterally, no wheezes, no rhonchi CARDIAC: Regular rate and rhythm, no murmurs/gallops/rubs ABDOMEN: Soft, nondistended, nontender, positive bowel sounds, no rebound, no guarding EXTREMETIES: No edema, cyanosis, clubbing NEUROLOGIC: Alert, oriented to person only, CN's grossly intact, no focal deficits SKIN: No rash, wounds. Multiple areas of ecchymosis, sutured skin laceration on scalp PSYCH: Normal mood, normal affect Results Laboratory Results: 11/17/16 04:31 11/17/16 04:31 11/17/16 11/17/16 04:31 04:31 WBC 9.2 RBC 3.50 L Hgb 10.6 L Hct 32.6 L MCV 93 MCH 30.4 MCHC 32.6 RDW 13.8 Plt Count 181 Seg Neutrophils % 75.7 Lymphocytes % 14.0 Monocytes % 5.9 Eosinophils % 3.9 Basophils % 0.5 Absolute Neutrophils 7.0 Absolute Lymphocytes 1.3 Absolute Monocytes 0.5 Absolute Eosinophils 0.4 Absolute Basophils 0.0 Sodium 155.7 H Potassium 3.9 Chloride 124 H Carbon Dioxide 24 Anion Gap 8 BUN 48 H Creatinine 0.95 Est GFR ( Amer) > 60 Est GFR (Non-Af Amer) 57 L Glucose 112 H Calcium 8.9 Impressions: Head CT 11/15/16 16:40 IMPRESSION: NO ACUTE INTRACRANIAL PROCESS. NO SIGNIFICANT CHANGE FROM PRIOR STUDY. Abdomen/Pelvis CT 11/15/16 16:43 IMPRESSION: NO ACUTE FINDINGS WITHIN THE ABDOMEN OR PELVIS. ACUTE FRACTURE INVOLVING THE POSTERIOR ASPECT OF THE LEFT ACETABULUM IN A PATIENT WHO IS STATUS POST HIP ARTHROPLASTY. ADDITIONAL HEALING FRACTURES NOTED INVOLVING THE LEFT MARJAN SACRUM AND BILATERAL SUPERIOR INFERIOR PUBIC RAMI. Assessment & Plan - Diagnosis (1) Encephalopathy Is this a current diagnosis for this admission?: YesPlan: Much improved. Likely multifactorial nature to include dementia, dehydration, hyperglycemia, hypernatremia, B-12 deficiency. Continue supportive care. (2) Left acetabular fracture Qualifiers: Encounter type: initial encounter Sublocation of acetabulum: posterior wall Fracture type: closed Fracture alignment: nondisplaced Qualified Code(s): S32.425A - Nondisplaced fracture of posterior wall of left acetabulum, initial encounter for closed fracture Is this a current diagnosis for this admission?: YesPlan: Patient seen by Dr. Hand in no surgery required. Nonweightbearing 6 weeks. Patient is nonambulatory at baseline. (3) Dehydration Is this a current diagnosis for this admission?: YesPlan: Continue IV rehydration. (4) Acute kidney injury Is this a current diagnosis for this admission?: YesPlan: Secondary to dehydration. Administer IV fluids. Kidney function much improved from admission. (5) Diabetes Is this a current diagnosis for this admission?: YesPlan: Stable. Sliding scale insulin. IV fluids. Continue to hold metformin secondary to acute kidney injury. Started on Lantus 15 units subcutaneous daily. (6) Dementia Qualifiers: Dementia type: vascular dementia Is this a current diagnosis for this admission?: YesPlan: Namenda. Patient resides at [facility] living [facility] at baseline. (7) Depression Is this a current diagnosis for this admission?: YesPlan: Continue Zoloft and Remeron. (8) Hypertension Is this a current diagnosis for this admission?: YesPlan: Hold lisinopril secondary to acute kidney injury. Resume Norvasc at 5 mg daily. When necessary IV hydralazine. (9) Laceration of head Qualifiers: Encounter type: subsequent encounter Location of open wound of head: scalp Foreign body presence: without foreign body Qualified Code(s): S01.01XD - Laceration without foreign body of scalp, subsequent encounter Is this a current diagnosis for this admission?: YesPlan: This was repaired on 11/10/2016 with 4 interrupted sutures. Patient will need suture removal on 11/20/2016. (10) Remote history of stroke Is this a current diagnosis for this admission?: YesPlan: Continue aspirin 81 mg for now. (11) Vitamin B 12 deficiency Is this a current diagnosis for this admission?: YesPlan: Administered B-12 injection on 11/15/2016. Patient should be on monthly B-12 injections but will have to verify outpatient medications. (12) UTI (urinary tract infection) Is this a current diagnosis for this admission?: YesPlan: Urine culture growing Proteus species, susceptibility pattern reviewed. Discontinue IV cefepime. Start Keflex. - Time Time Spent with patient: 25-34 minutes
[2016-11-17] MEDS ORDERED: AMLODIPINE BESYLATE 5 MG TABLET PO ONE (16:45)
[2016-11-17] MEDS: CEPHALEXIN 500 MG CAPSULE PO SCH (22:22)
[2016-11-17] MEDS: MIRTAZAPINE 15 MG TABLET PO SCH (22:22)
[2016-11-18] MEDS: INSULIN LISPRO 100 UNIT/ML 3 ML VIAL SUBCUT PRN (00:30)
[2016-11-18 04:22] LABS: ABSOLUTE EOSINOPHILS # (AUTO) 0.1 10^3/uL (0.0-0.6); ABSOLUTE LYMPHOCYTES (AUTO) 0.9 10^3/uL (0.5-4.7); ABSOLUTE MONOCYTES (AUTO) 0.4 10^3/uL (0.1-1.4); ABSOLUTE NEUT (AUTO) 6.6 10^3/uL (1.7-8.2); BASOPHILS % (AUTO) 0.3 % (0-2); EOSINOPHILS % (AUTO) 1.8 % (0-6); HEMATOCRIT 28.7 % (36.0-47.0); HEMOGLOBIN 9.7 g/dL (12.0-15.5); HGB HCT DIFFERENCE 0.4; LYMPHOCYTES % (AUTO) 10.5 % (13-45); MEAN CORPUSCULAR HEMOGLOBIN 30.6 pg (27.0-33.4); MEAN CORPUSCULAR HGB CONC 33.8 g/dL (32.0-36.0); MEAN CORPUSCULAR VOLUME 90 fl (80-97); MONOCYTES % (AUTO) 5.4 % (3-13); RED BLOOD COUNT 3.18 10^6/uL (3.72-5.28); RED CELL DISTRIBUTION WIDTH 13.3 % (11.5-14.0); WHITE BLOOD COUNT 8.1 10^3/uL (4.0-10.5)
[2016-11-18] MEDS: 1/2 NORMAL SALINE 1,000 ML IV PRN (04:27)
[2016-11-18 04:38] LABS: ANION GAP 7 (5-19); CALCIUM 8.5 mg/dL (8.4-10.2); CARBON DIOXIDE 20 mmol/L (22-30); CHLORIDE 114 mmol/L (98-107); CREATININE RESULT 0.73 mg/dL (0.52-1.25); GLUCOSE 133 mg/dL (75-110); POTASSIUM 3.6 mmol/L (3.6-5.0); SODIUM 141.2 mmol/L (137-145)
[2016-11-18 04:56] LABS: BLOOD UREA NITROGEN 23 mg/dL (7-20)
[2016-11-18] MEDS: CEPHALEXIN 500 MG CAPSULE PO SCH ×2 (05:00→14:11)
[2016-11-18] MEDS: HEPARIN SOD (PORCINE) 5,000 UNIT/ML 1 ML SYRINGE SUBCUT SCH ×2 (05:00→14:11)
[2016-11-18] MEDS ORDERED: AMLODIPINE BESYLATE 5 MG TABLET PO SCH (10:00)
--- NOTE | 2016-11-18 10:21 | PDOC DISCHARGE SUMMARY ---
General - Admit/Disc Date/PCP Admission Date/Primary Care Provider: 11/15/16 18:42 Discharge Date: 11/18/16 - Discharge Diagnosis (1) Encephalopathy Is this a current diagnosis for this admission?: Yes (2) Left acetabular fracture Is this a current diagnosis for this admission?: Yes (3) Dehydration Is this a current diagnosis for this admission?: Yes (4) Acute kidney injury Is this a current diagnosis for this admission?: Yes (5) Diabetes Is this a current diagnosis for this admission?: Yes (6) Dementia Is this a current diagnosis for this admission?: Yes (7) Depression Is this a current diagnosis for this admission?: Yes (8) Hypertension Is this a current diagnosis for this admission?: Yes (9) Laceration of head Is this a current diagnosis for this admission?: Yes (10) Remote history of stroke Is this a current diagnosis for this admission?: Yes (11) Vitamin B 12 deficiency Is this a current diagnosis for this admission?: Yes (12) UTI (urinary tract infection) Is this a current diagnosis for this admission?: Yes (13) Anemia Is this a current diagnosis for this admission?: Yes - Additional Information Resuscitation Status: Full Code Discharge Diet: Cardiac, Diabetic, Other (Comments) - mechanical soft diet, honey thick liquid Discharge Activity: Other - nonweightbearing 6 weeks Home Medications: Acetaminophen [Tylenol 325 mg Tablet] 650 mg PO Q6HP PRN 11/15/16 Aspirin [Aspirin EC] 81 mg PO DAILY 11/15/16 Bacitracin 1 applic TP BID 11/15/16 Mag Hydrox/Al Hydrox/Simeth [Maalox Plus Susp 30 Udcup] 30 ml PO Q6HP PRN Memantine HCl [Namenda 10 mg Tablet] 10 mg PO BID 11/15/16 Metformin HCl [Glucophage] 500 mg PO BID 11/15/16 Mirtazapine 7.5 mg PO QHS 11/15/16 Polyethylene Glycol 3350 [Miralax Powder 17 gm/Packet] 1 packet PO DAILY Potassium Chloride 20 meq PO DAILY 11/15/16 Promethazine HCl [Phenergan 25 mg Tablet] 12.5 mg PO Q6HP PRN 11/15/16 Sennosides/Docusate Sodium [Senna-S Tablet] 1 tab PO BID 11/15/16 Sertraline HCl [Zoloft] 100 mg PO DAILY 11/15/16 Amlodipine Besylate [Norvasc 5 mg Tablet] 5 mg PO DAILY #30 tablet 11/18/16 Cephalexin Monohydrate [Keflex 500 mg Capsule] 500 mg PO Q8 #28 capsule Insulin Aspart [Novolog Flexpen] 0 unit SUBCUT .SLD SCALE #1 pen 11/18/16 Insulin Glargine,Hum.rec.anlog [Lantus Insulin 100 Unit/mL] 15 unit SUBCUT DAILY @1400 #1 insuln.pen 11/18/16 Tramadol HCl [Ultram 50 mg Tablet] 50 mg PO Q6HP PRN #20 tablet 11/18/16 History of Present Illness Patient complains of: Altered mental status History of Present Illness: DELROY BORJAS is a 76 year old female with past medical history of dementia, diabetes, hypertension, ambulatory dysfunction with frequent falls presents to the emergency department with altered mental status. Patient apparently sustained a fall on 11/10/2016 with a scalp laceration for which she presented to the emergency department. Laceration was sutured with [address] at that time was negative. Family reports the patient has had decreased appetite and worsening mental status since then. Hospital Course Hospital Course: Patient was admitted for altered mental status and found to have multiple issues to include a pelvic fracture, severe dehydration with acute kidney injury and hypernatremia, hyperglycemia. She was brought in the hospital and dehydration/hypernatremia/acute kidney injury were corrected with IV fluids. She was taken off of metformin for hyperglycemia/diabetes secondary to acute kidney injury and started on Lantus. Blood glucose is 137 at time of discharge. Continue Lantus as well as sliding scale insulin. With regard to pelvic fracture patient was seen by Dr. Hand of orthopedics. She does not require surgery but needs to be nonweightbearing for 6 weeks. She will need to follow-up with orthopedics in 4-6 weeks. With regard to hypertension patient was taken off of lisinopril secondary to acute kidney injury. Blood pressure remained low so Norvasc was decreased from 10 mg daily to 5 mg daily. With regard to dehydration/acute kidney injury. Patient was taken off of lisinopril, metformin, Celebrex. She was given IV fluids. All these issues have corrected. Patient is currently on a thickened liquid diet and should be reevaluated by speech therapy to see if she can go to thin liquids. She will need to be monitored to ensure that she has adequate access to fluid and adequate fluid intake. Patient was found to have a urinary tract infection and was initially started on IV Rocephin. Urine culture grew Proteus species and susceptibilities were reviewed. Patient will be discharged on oral Keflex. Physical Exam Vital Signs: Temp Pulse Resp BP Pulse Ox 97.6 F 79 18 126/63 H 100 11/18/16 07:35 11/18/16 07:35 11/18/16 07:35 11/18/16 07:35 11/18/16 07:35 Intake & Output 11/17/16 11/18/16 11/19/16 06:59 06:59 06:59 Intake Total 3171 Output Total 1100 Balance 2071 Weight 43.8 kg GENERAL: No acute distress HEENT: Conjunctiva clear, nonicteric, moist mucous membranes, no JVD, midline trachea RESPIRATORY: Clear to auscultation bilaterally, no wheezes, no rhonchi CARDIAC: Regular rate and rhythm, no murmurs/gallops/rubs ABDOMEN: Soft, nondistended, nontender, positive bowel sounds, no rebound, no guarding EXTREMETIES: No edema, cyanosis, clubbing NEUROLOGIC: Alert, oriented to person only, CN's grossly intact, no focal deficits SKIN: No rash, wounds. Multiple areas of ecchymosis, sutured skin laceration on scalp PSYCH: Normal mood, normal affect Results Laboratory Results: 11/18/16 03:27 11/18/16 03:27 11/18/16 11/18/16 03:27 03:27 WBC 8.1 RBC 3.18 L Hgb 9.7 L Hct 28.7 L MCV 90 MCH 30.6 MCHC 33.8 RDW 13.3 Plt Count 156 Seg Neutrophils % 82.0 H Lymphocytes % 10.5 L Monocytes % 5.4 Eosinophils % 1.8 Basophils % 0.3 Absolute Neutrophils 6.6 Absolute Lymphocytes 0.9 Absolute Monocytes 0.4 Absolute Eosinophils 0.1 Absolute Basophils 0.0 Sodium 141.2 Potassium 3.6 Chloride 114 H Carbon Dioxide 20 L Anion Gap 7 BUN 23 H D Creatinine 0.73 Est GFR ( Amer) > 60 Est GFR (Non-Af Amer) > 60 Glucose 133 H Calcium 8.5 Impressions: Head CT 11/15/16 16:40 IMPRESSION: NO ACUTE INTRACRANIAL PROCESS. NO SIGNIFICANT CHANGE FROM PRIOR STUDY. Abdomen/Pelvis CT 11/15/16 16:43 IMPRESSION: NO ACUTE FINDINGS WITHIN THE ABDOMEN OR PELVIS. ACUTE FRACTURE INVOLVING THE POSTERIOR ASPECT OF THE LEFT ACETABULUM IN A PATIENT WHO IS STATUS POST HIP ARTHROPLASTY. ADDITIONAL HEALING FRACTURES NOTED INVOLVING THE LEFT MARJAN SACRUM AND BILATERAL SUPERIOR INFERIOR PUBIC RAMI. Qualifiers PATEINT BEING DISCHARGED WITH ANY OF THE FOLLOWING DIAGNOSIS?: No Plan Time Spent: Greater than 30 Minutes
[2016-11-18] MEDS: ASPIRIN 81 MG TABLET, ENT COATED PO SCH (11:06)
[2016-11-18] MEDS: MEMANTINE HCL 10 MG TABLET PO SCH (11:06)
[2016-11-18] MEDS: SERTRALINE HCL 50 MG TABLET PO SCH (11:06)
[2016-11-18 13:35] VITALS: BP 135/67
[2016-11-18] MEDS: INSULIN GLARGINE,HUM.REC.ANLOG 300 UNIT/3 ML INSULN.PEN SUBCUT SCH (14:11)
[2016-11-18] MEDS: OXYCODONE HCL IR 5 MG TABLET PO PRN (16:03)
== END 2016-11-18 16:35 | DRG 637 ==
LOC: ER 15:40 → EH 18:42 → UNDOADMIN 19:15 → EH 19:15 → 3N 11-16 00:08
PROVIDERS: ADMIT Family Medicine; ATTEND Family Medicine
DX: E11.00 Type 2 diabetes mellitus with hyperosmolarity without nonketotic hyperglycemic-hyperosmolar coma (NKHHC) (principal); G93.41 Metabolic encephalopathy; S32.465A Nondisplaced associated transverse-posterior fracture of left acetabulum, initial encounter for closed fracture; E87.0 Hyperosmolality and hypernatremia; N17.9 Acute kidney failure, unspecified; N39.0 Urinary tract infection, site not specified; E11.65 Type 2 diabetes mellitus with hyperglycemia; E86.0 Dehydration; F03.90 Unspecified dementia, unspecified severity, without behavioral disturbance, psychotic disturbance, mood disturbance, and anxiety; Z86.73 Personal history of transient ischemic attack (TIA), and cerebral infarction without residual deficits; E53.8 Deficiency of other specified B group vitamins; I11.0 Hypertensive heart disease with heart failure; B96.4 Proteus (mirabilis) (morganii) as the cause of diseases classified elsewhere; I50.9 Heart failure, unspecified; S01.01XD Laceration without foreign body of scalp, subsequent encounter; S00.83XA Contusion of other part of head, initial encounter; S30.0XXA Contusion of lower back and pelvis, initial encounter; D64.9 Anemia, unspecified; M19.019 Primary osteoarthritis, unspecified shoulder; Z96.642 Presence of left artificial hip joint; R29.6 Repeated falls; Z79.82 Long term (current) use of aspirin; Z79.4 Long term (current) use of insulin; Z91.81 History of falling; Z90.710 Acquired absence of both cervix and uterus; W06.XXXA Fall from bed, initial encounter; Y92.122 Bedroom in nursing home as the place of occurrence of the external cause; F32.9 Major depressive disorder, single episode, unspecified
CPT/HCPCS: 36415; 70450; 74176; 80048; 80053; 81001; 82272; 82962; 83735; 85025; 87086; 87088; 87186; 93005; 93010; 99291; 99292; J0692; J1170; J1644; J1815; J3420; J3490; J7040

== ENCOUNTER 2016-11-28 22:41 | Emergency (ER) | payer MEDICARE, OTHER ==
--- NOTE | 2016-11-28 23:03 | ER Document Report ---
ED General - General Stated Complaint: ALTERED MENTAL STATUS Notes: Patient is a 76-year-old female who presents with complaints of confusion. Patient was found to have a low blood sugar. [facility] arrived blood sugar was up to 109. She does say her nursing facility. Patient apparently still little bit more confused than her baseline despite her blood sugar returned to normal. Start from the determine exactly what her baseline is being that she does have history of dementia according to her shelter paperwork. No further history is obtainable at this time as the patient will not communicate or talk with me. TRAVEL OUTSIDE OF THE [place] IN LAST 30 DAYS: No - Related Data Allergies/Adverse Reactions: No Known Allergies Allergy (Verified 11/15/16 16:04) Past Medical History - Social History Smoking Status: Unknown if Ever Smoked Frequency of alcohol use: None Drug Abuse: None Family History: None - Past Medical History Cardiac Medical History: Reports: Hx Congestive Heart Failure, Hx Hypertension Denies: Hx Coronary Artery Disease, Hx Heart Attack Pulmonary Medical History: Denies: Hx Asthma, Hx Bronchitis, Hx COPD, Hx Pneumonia Neurological Medical History: Reports: Hx Cerebrovascular Accident. 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 Denies : Hx Pacemaker - Immunizations Hx Diphtheria, Pertussis, Tetanus Vaccination: Yes Review of Systems - Review of Systems -: Yes ROS unobtainable due to patient's medical condition - Patient is not communicating Physical Exam - Vital signs Vitals: Resp Pulse Ox 15 98 11/28/16 23:19 11/28/16 23:19 - Notes Notes: General Appearance: Well nourished, patient keeps her eyes closed. When I go to open her eyes she pushes my hand away. She will not communicate. Vitals: reviewed, See vital signs table. Head: no swelling or tenderness to the head Eyes: PERRL, EOMI, Conjuctiva clear Mouth: No decreasd moisture Lungs: No wheezing, No rales, No rhonci, No accessory muscle use, good air exchange bilaterally. Heart: Normal rate, Regular rythm, No murmur, no rub Abdomen: Normal BS, soft, No rigidity, No abdominal tenderness, No guarding, no rebound, no abdominal masses, no organomegaly Extremities: , good pulses in all extremities, no swelling or tenderness in the extremities, no edema. Skin: warm, dry, appropriate color, no rash Neuro: speech clear, oriented x 3, normal affect, responds appropriately to questions. Left arm is held in contracture. Right hand has normal strength. Unable to fully check cranial nerves as the patient will not follow commands. Course - Re-evaluation Re-evalutation: 11/29/16 03:44 Dear evaluate the patient. It was actually able to get her to wake up and talk to me. I did review her previous records and appears that she has chronic recurrent encephalopathy that this is not abnormal for her. When I woke her up she said that she belonged to drink some orange juice for me. When I get the words use she then refused to drink it. Her blood sugars down to the 70s. I will give her half an amp of D50. I will continue to watch her through the night here in ER at and let her sleep and make sure that her blood sugars do not recurrently fall. - Vital Signs Vital signs: Temp Pulse Resp BP Pulse Ox 15 145/69 H 100 11/29/16 00:11 11/29/16 00:11 11/29/16 00:11 - Laboratory Result Diagrams: 11/28/16 23:34 11/28/16 23:34 Laboratory results interpreted by me: 11/28/16 11/28/16 11/28/16 23:34 23:34 23:34 RBC 3.71 L Hgb 10.9 L Hct 32.9 L Plt Count 727 H Potassium 3.5 L POC Glucose Alkaline Phosphatase 496 H Urine Ascorbic Acid 20 H 11/29/16 04:37 RBC Hgb Hct Plt Count Potassium POC Glucose 155 H Alkaline Phosphatase Urine Ascorbic Acid - EKG Interpretation by Me Additional EKG results interpreted by me: 11/28/16 23:46 EKG is reviewed and interpreted by me. EKG shows normal sinus rhythm with rate of [address] segment elevation or depression. No ischemic T wave inversions. LA interval, QRS duration are within normal range. QTC intervals slightly prolonged. Old EKG for comparison is from 11/15/2016. - Transfer of Care Notes: 11/29/16 05:19 Patient continues to not have any further complaints. I did review his records and appears that she has dementia and encephalopathy. Reading her previous progress notes recent admission appears that she is only oriented to self. The that is how she is now. She will open her eyes and talk to me briefly but then wants to be left alone he goes back to sleep. At this time she refuses to eat and requests. Left alone. I did recheck her several times at night. I did keep her here overnight to make sure that her blood sugars negative dangerous low overnight. At this time her blood sugars within normal range. I will have them decrease her metformin once a day. I will discharge her back to shelter. Restrict precautions for them to keep a close eye on her blood sugar throat the day to have her return to ER if she has recurrence of low blood sugar , any signs of fever or infection, or if she is acting more confused than usual. On her workup today is no evidence of infection. Her CT scan is negative. She's not hypercarbic. Do not see any indication for admission at this time. Dictation of this chart was performed using voice recognition software; therefore, there may be some unintended grammatical errors. Discharge - Discharge Clinical Impression: Encephalopathy, Hypoglycemia Condition: Good Disposition: HOME, SELF-CARE Additional Instructions: Please continue to keep a close eye on Mrs. Llanes's blood sugar over the next 24 hours. Please have her return to the ER immediately if her blood sugar decreases again, she has fevers, she has vomiting, or is more confused than her baseline dementia. Please decrease her Metformin dosage to once a day.
[2016-11-28 23:55] LABS: ABSOLUTE BASOPHILS # (AUTO) 0.1 10^3/uL (0.0-0.2); ABSOLUTE LYMPHOCYTES (AUTO) 1.2 10^3/uL (0.5-4.7); ABSOLUTE MONOCYTES (AUTO) 0.5 10^3/uL (0.1-1.4); ABSOLUTE NEUT (AUTO) 4.8 10^3/uL (1.7-8.2); EOSINOPHILS % (AUTO) 0.5 % (0-6); HEMATOCRIT 32.9 % (36.0-47.0); HEMOGLOBIN 10.9 g/dL (12.0-15.5); HGB HCT DIFFERENCE -0.2; LYMPHOCYTES % (AUTO) 18.6 % (13-45); MEAN CORPUSCULAR HEMOGLOBIN 29.4 pg (27.0-33.4); MEAN CORPUSCULAR HGB CONC 33.1 g/dL (32.0-36.0); MEAN CORPUSCULAR VOLUME 89 fl (80-97); MONOCYTES % (AUTO) 7.9 % (3-13); RED BLOOD COUNT 3.71 10^6/uL (3.72-5.28); WHITE BLOOD COUNT 6.7 10^3/uL (4.0-10.5)
[2016-11-29 00:02] LABS: APPEARANCE,URINE CLEAR; BILIRUBIN,URINE NEGATIVE (NEGATIVE); GLUCOSE, URINE NEGATIVE (NEGATIVE); KETONES,URINE NEGATIVE (NEGATIVE); LEUKOCYTE ESTERASE,URINE NEGATIVE (NEGATIVE); NITRITE,URINE NEGATIVE (NEGATIVE); PROTEIN,URINE NEGATIVE (NEGATIVE); URINE SPECIFIC GRAVITY 1.004; UROBILINOGEN,URINE NEGATIVE mg/dL (<2.0)
[2016-11-29 00:14] LABS: ALANINE AMINOTRANSFERASE 25 U/L (9-52); ALBUMIN 3.5 g/dL (3.5-5.0); ALKALINE PHOSPHATASE 496 U/L (38-126); ANION GAP 11 (5-19); ASPARTATE AMINO TRANSFERASE 23 U/L (14-36); BILIRUBIN,DIRECT 0.1 mg/dL (0.0-0.4); BILIRUBIN,TOTAL 0.6 mg/dL (0.2-1.3); BLOOD UREA NITROGEN 13 mg/dL (7-20); CALCIUM 9.4 mg/dL (8.4-10.2); CARBON DIOXIDE 28 mmol/L (22-30); CHLORIDE 104 mmol/L (98-107); CREATININE RESULT 0.61 mg/dL (0.52-1.25); GLUCOSE 92 mg/dL (75-110); POTASSIUM 3.5 mmol/L (3.6-5.0); TOTAL PROTEIN 6.4 g/dL (6.3-8.2)
[2016-11-29] MEDS ORDERED: DEXTROSE 50%-WATER 25 GM/50 ML DISP.SYRIN IV ONE (03:43)
[2016-11-29 04:54] LABS: VENOUS BLOOD BASE EXCESS 0.6 mmol/L; VENOUS BLOOD HCO3 26.5 mmol/L (20-32); VENOUS BLOOD PCO2 48.7 mmHg (35-63); VENOUS BLOOD PH 7.35 (7.30-7.42)
[2016-11-29 06:14] VITALS: BP 124/53
--- NOTE | 2016-11-29 07:06 | EKG REPORT ---
SEVERITY:- BORDERLINE ECG - SINUS RHYTHM BORDERLINE R WAVE PROGRESSION, ANTERIOR LEADS : Confirmed by: Ryan Willis MD 29-Nov-2016 07:05:25
== END 2016-11-29 05:43 | disposition home or self-care (01) ==
LOC: ER 22:41
DX: E11.649 Type 2 diabetes mellitus with hypoglycemia without coma (principal); Z79.84 Long term (current) use of oral hypoglycemic drugs; G93.40 Encephalopathy, unspecified; I10 Essential (primary) hypertension; Z86.73 Personal history of transient ischemic attack (TIA), and cerebral infarction without residual deficits
CPT/HCPCS: 93005; 99285; 51701; 96374; 36415; 82962; 85025; 80053; 81001; 84484; 82803; 71010; 70450; 93010; J3490